=== PATIENT | male | born 1975 | race African-American/Black ===

== ENCOUNTER 2025-01-28 15:19 | Outpatient (CLI) | payer OTHER, SELFPAY ==
--- OUTSIDE RECORDS SUMMARY | 2025-01-28 15:00 | XMS_ITS | Encounter Summary ---
Author Organization [facility] Keek [facility] Address [address] [place] [address] Care Team Providers Care Bulk Delivery Driver Name Role Phone Unavailable Primary Care Provider Unavailabl e Reason for Referral * Laboratory Services (Routine) - Open Specialty Diagnoses / Procedures Referred By Rosana muller Referred To Contact Diagnoses Erythrocytosis Procedures JAK2 MUTATION Parth Argueta MD [address] [place] [id number] Phone: tel: fax: Referral ID Status Reason Start Date Expiration Date Visits Re quested Visits Authorized [id number] Open 01/28/2025 02/28/2026 1 1 Encounter Details Date Type Department Care Team (Late st Contact Info) Description 01/28/2025 3:00 PM CDT Office Visit [facility] Oncology and Hematology - José Miguel [address] [place] [address] [address] [place] [address] Parth Argueta MD [address] [place] [phone] Erythrocytosis (Primary Dx) Social History Tobacco Use Types Packs/Day Years Used Date Smoking Tobacco: Never Smokeless Tobacco: Never Tobacco Cessation:Counseling Given: Not Answered Alcohol Use Standard Drinks/Week Comments Yes 0 (1 standard drink = 0.6 oz pur e alcohol) Occassionally Sex and Gender Information Value Date Recorded Sex Assigned at Not on file Legal Sex Male 9:28 AM CDT Gender Identity Not on file Sexual Orientation Not on file documented as of this encounter Last Filed Vital Signs Vital Sign Reading Time Taken Comments Blood Pressure 154/87 01/28/2025 2:52 PM CDT Pulse 51 01/28/2025 2:49 PM CDT Temperature 36.2 C (97.1 F) 01/28/2025 2:49 PM CDT Respiratory Rate 15 01/28/2025 2:49 PM CDT Oxygen Saturation 98% 01/28/2025 2:49 PM CDT Inhaled Oxygen Concentration - - Weight 109.7 kg (241 lb 12.8 oz) 01/28/2025 2:49 PM CDT Height 170.2 cm (5' 7) 01/28/2025 2:49 PM CDT Body Mass Index 37.87 01/28/2025 2:49 PM CDT documented in this encounter Plan of Treatment Upcoming Encounters Date Type Department Care Team (Late st Contact Info) Description 02/19/2025 4:30 PM CDT Telephone Check Up [facility] Oncology and Hematology - José Miguel [address] [facility] [address] [place] [address] Parth Argueta MD [address] [facility] [address] [place] [address] Scheduled Orders Name Type Priority Associated Diagnoses Orde r Schedule CBC WITH DIFFERENTIAL Lab Stat Erythrocytosis Expected: 01/28/2025, Expires: 01/28/2026 COMPREHENSIVE METABOLIC PANEL Lab Stat Erythrocytosis Expected: 01/28/2025, Expires: 01/28/2026 ERYTHROPOIETIN LEVEL Lab Routine Erythrocytosis Expected: 01/28/2025, Expires: 01/28/2026 JAK2 MUTATION Lab Routine Erythrocytosis Expected: 01/28/2025, Expires: 01/28/2026 documented as of this encounter Visit Diagnoses Diagnosis Erythrocytosis- Primary Reserved for inherently not codable concepts WITHOUT codable children documented in this encounter
--- OUTSIDE RECORDS SUMMARY | 2025-01-28 15:24 | XMS_ITS | Clinical Summary ---
Author Organization [facility] Judd Reyes Address [address] [place] [address] Care Team Providers Care Custodial Manager Name Role Phone Unavailable Primary Care Provider Unavailabl e Allergies No known active allergies Medications rosuvastatin (CRESTOR) 40 mg tablet Take 40 mg by mouth daily. 10/10/2024 Active Active Problems No known active problems Encounters Date Type Department Care Team Description 01/28/2025 3:00 PM CDT Office Visit [facility] Oncology and Hematology - José Miguel [address] [facility] [address] [place] [address] Parth Argueta MD Erythrocytosis (Primary Dx) from Last 3 Months Family History Medical History Relation Name Comments No Known Problems Child 1 No Known Problems Child 2 No Known Problems Child 3 Heart Disease Father Prostate Cancer Father No Known Problems Mother No Known Problems Sister 1 No Known Problems Sister 2 Relation Name Status Comments Child 1 Alive Child 2 Alive Child 3 Alive Father Alive Mother Alive Sister 1 Alive Sister 2 Alive Social History Tobacco Use Types Packs/Day Years [...] on file Sexual Orientation Not on file Last Filed Vital Signs Vital Sign Reading [...] Mass Index 37.87 01/28/2025 2:49 PM CDT Plan of Treatment Upcoming Encounters Date Type Department Care Team (Late st Contact Info) Description 02/19/2025 4:30 PM CDT Telephone Check Up [facility] Oncology and Hematology - José Miguel [address] [facility] [address] [place] [address] Parth Argueta MD [address] [facility] [address] [place] [address] Health Maintenance Due Date Last Done Comments Pre-Diabetes and Diabetes Screening 1977 DTAP/TDAP/TD VACCINES (1 - Tdap) 1996 HEPATITIS B VACCINES (1 of 3 - 19+ 3-dose series) 1996 COLORECTAL SCREENING 2022 Colorectal Cancer Screening 2022 FIT-DNA Q 3 years 2022 FIT/FOBT Q 1 year 2022 Flex Sig/CT Colonography Q 5 years 2022 COVID-19 Vaccine ( season) 2024, 02/10/2021 Preventative Visit- Commercial 06/05/2024 INFLUENZA VACCINE (#1) 2025 Insurance [facility] [employer] PPO [id number]
[2025-01-28 15:36] LABS: Hematocrit 49.8 % (42.0-52.0); Hemoglobin 17.1 g/dL (14.0-18.0); Immature Granulocyte Percent A 0.4 % (0-0.5); Lymphocytes Absolute Auto 2.52 K/mm3 (0.9-3.2); Mean Corpuscular HGB Conc 34.3 g/dl (32-36); Mean Corpuscular Hemoglobin 32.0 pg (26-34); Mean Corpuscular Volume 93.3 fl (80-100); Nucleated Red Blood Cells Absolute Auto 0.000 K/mm3 (0.0-0.012); Nucleated Red Blood Cells Perc 0.0 % (0.0-0.2); Platelet Count Result 238 k/mm3 (150-375); Red Blood Count 5.34 M/mm3 (4.6-6.20); White Blood Count 7.7 K/mm3 (4.5-10.0)
[2025-01-28 16:35] LABS: Alanine Aminotransferase 42 U/L (6-50); Albumin Level 4.5 g/dL (3.5-5.1); Alkaline Phosphatase 64 U/L (38-126); Anion Gap 8 mmol/L (4-12); Aspartate Amino Transferase 78 U/L (17-59); Bilirubin,Total 0.8 mg/dL (0.2-1.3); Blood Urea Nitrogen 12 mg/dL (9-20); Calcium 9.6 mg/dL (8.4-10.2); Carbon Dioxide 29 mmol/L (22-30); Chloride 101 mmol/L (98-107); Estimated Glomerular Filt Rate > 60; Glucose 92 mg/dL (65-110); Potassium 4.4 mmol/L (3.4-5.0); Sodium 138 mmol/L (137-145); Total Protein 8.2 g/dL (6.3-8.2)
== END 2025-01-28 15:20 | disposition home or self-care (01) ==
LOC: ANHLAB 15:22
PROVIDERS: Visit Provider Internal Medicine Hematology & Oncology
DX: D75.1 Secondary polycythemia (principal)
CPT/HCPCS: 36415; 80053; 82668; 85025